=== PATIENT | male | born 1990 | race Caucasian/White ===

== ENCOUNTER 2022-12-10 19:30 | Emergency (ER) | payer SELFPAY ==
[2022-12-10 19:31] VITALS: BP 109/78; PULSE 64; RESP 16; TEMP 36.8; O2SAT 98; BMI 29.9
[2022-12-10 19:45] VITALS: BP 109/78; PULSE 70; O2SAT 99
[2022-12-10 19:48] VITALS: BMI 29.9
--- NOTE | 2022-12-10 22:01 | HMH.EDGENADL ---
Discharge Plan Disposition Patient Disposition: Home, Self-Care Condition: Good Prescriptions Prescriptions: No Action No Known Home Medications Referrals Follow up/Referrals: Provider,Referral, MD [Primary Care Provider] - See instructions Activity Restrictions/Add. Instructions Additional Instructions/Restrictions: Return to the emergency department new, changing, worsening symptoms. Please use erythromycin ointment 4 times daily as instructed. Please call [phone] Ariel Abarca for [facility] appointment to remove the foreign body. Clinical Impressions Clinical Impression: Foreign body in eye Instructions Patient Instructions: DI for Corneal Abrasion Discharge ED Provider: Arvind Bahena General Adult HPI General Chief complaint: Eye Problems Stated complaint: AO09/ FB LT eye Time Seen by Provider: 12/10/22 20:44 Mode of Arrival: Ambulatory Source of Information: Patient Limitations: No Limitations Description of Symptoms (Recalled from ER Triage Doc. by RN): pt states was grinding a pipe and felt something hit his lt eye History of Present Illness HPI narrative: Patient is a 32 year old male presenting to the ED with an eye injury. Patient was grinding metal when a small piece of metal hit him in the eye. Patient is complaining of mild blurry vision and 6/10 eye pain at this time. Patient denies any other injury. Patient did attempt to remove the foreign body himself without success. Related Data Home Medications Medication Instructions Recorded Confirmed No Known Home Medications 12/10/22 12/10/22 Allergies Allergy/AdvReac Type Severity Reaction Status Date / Time No Known Allergies Allergy Verified 12/10/22 19:49 [facility] Disclaimer: The information contained in this section may have been updated after the patient was seen, as this information can be updated by other users. Social History Smoking Status: Never smoker alcohol intake: never current occupational status: employed Travel in the last 8 weeks: None ROS Obtained: Yes All systems reviewed & no additional complaints except as documented Physical Exam General General appearance: alert and in no apparent distress Head Head exam: atraumatic, normocephalic and normal inspection Eye Eye exam: Present normal appearance (Small 2 mm x 2 mm foreign body overlying pupil.), PERRL and EOMI ENT ENT exam: Present normal exam, normal oropharynx, mucous membranes moist, TM's normal bilaterally and normal external ear exam Neck Neck exam: Present normal inspection, full ROM and trachea midline; Absent meningismus or lymphadenopathy Chest Chest inspection: Present normal inspection and symmetric chest wall rise; Absent tenderness Respiratory Respiratory exam: Present normal lung sounds bilaterally; Absent respiratory distress Cardiovascular Cardiovascular exam: Present regular rate and normal rhythm; Absent JVD Abdominal Exam Abdominal exam: Present soft and normal bowel sounds; Absent distention, tenderness or guarding Extremities Exam Extremities exam: Present normal inspection, full ROM and normal capillary refill; Absent calf tenderness Back Exam Back exam: Present normal inspection; Absent tenderness Neurological Exam Neurological exam: Present alert and oriented X3 Psychiatric Psychiatric exam: Present normal affect and normal mood Skin Skin exam: Present warm, dry, intact and normal color Lymphatic Lymphatic Findings: no adenopathy Medical Decision Making Souleymane Inquiry Pt receiving controlled substance: No Vital Signs: 12/10/22 19:31 12/10/22 19:45 Temperature 98.2 F Temperature Source Oral Pulse Rate 70 Pulse Rate [Right] 64 Respiratory Rate 16 Blood Pressure 109/78 L Blood Pressure [Right Arm] 109/78 L Blood Pressure Mean [Right Arm] 88 02 Sat by Pulse Oximetry 98 99 Orders (Tests/Meds): ED MEDICATIONS Discontinued Medica
--- NOTE | 2022-12-10 23:31 | PC.NURSE ---
PC to [facility], spoke to [facility], ophthalmology will be paged for ED
--- NOTE | 2022-12-11 00:02 | PC.NURSE ---
[facility] caled with dr Grimes and Dr Colmenares
[2022-12-11 00:36] VITALS: BP 108/82; PULSE 71; RESP 16; TEMP 36.8; O2SAT 99
== END 2022-12-11 00:36 | disposition home or self-care (01) ==
PROVIDERS: Emergency Provider Emergency Medicine
DX: T15.92XA Foreign body on external eye, part unspecified, left eye, initial encounter (principal); H53.8 Other visual disturbances; W31.1XXA Contact with metalworking machines, initial encounter; S05.02XA Injury of conjunctiva and corneal abrasion without foreign body, left eye, initial encounter; Z23 Encounter for immunization
CPT/HCPCS: 90714; 96372; 99283